=== PATIENT | female | born 1960 | race Caucasian/White ===

== ENCOUNTER 2023-08-21 15:01 | Outpatient (CLI) | payer MEDICARE, SELFPAY ==
--- OUTSIDE RECORDS SUMMARY | 2023-08-21 15:03 | XMS_ITS | Continuity of Care Document ---
Author Name Unknown Organization [facility] Address [address] [place] [address] Care Team Providers Care Utility Arborist Name Role Phone Ingrid Spence Primary Care Physician Encounter [facility]_[place] Date(s): 01/15/23 - 01/15/23 [facility] [address] [place] [address] Discharge Disposition: Home or Self Care Attending Physician: Ingrid Spence ND Admitting Physician: Ingrid Spence ND Referring Physician: Ingrid Spence ND Assessment and Plan Diagnostic Tests Pending * Vitamin D, 25-OH Total [facility] 01/15/23 Results Laboratory List Name Date .Morphology ([facility]) 01/15/23 Automated Diff 01/15/23 CBC w/ Diff 01/15/23 Free T4 01/15/23 T3, Free [facility] 01/15/23 Thyroid Stimulating Hormone 01/15/23 Most recent to oldest [Reference Range]: 1 WBC [5.0-10.0 x10^3/mcL] 2.5 x10^3/mcL *LOW* (01/15/23 1:00 PM) RBC [4.1-5.3 x10^6/mcL] 3.1 x10^6/mcL *LOW* (01/15/23 1:00 PM) Neutro Auto [40.0-75.0 %] 53.7 % (01/15/23 1:00 PM) Lymph Auto [20.0-50.0 %] 25.7 % (01/15/23 1:00 PM) Oliver Auto [2.0-15.0 %] 14.2 % (01/15/23 1:00 PM) Basophil Auto [0.0-1.0 %] 0.8 % (01/15/23 1:00 PM) MCV [80.0-96.0] 92.9 (01/15/23 1:00 PM) RBC Morph Abnormal (01/15/23 1:00 PM) T4 Free [0.76-1.46 ng/dL] 1.60 ng/dL *HI* (01/15/23 1:00 PM) MCHC [31.0-35.0 g/dL] 30.9 g/dL *LOW* (01/15/23 1:00 PM) Hct [37.0-47.0 %] 28.8 % *LOW* (01/15/23 1:00 PM) MCH [26.0-32.0 pg] 28.7 pg (01/15/23 1:00 PM) Neutro Absolute 1.4 x10^3/mcL *NA* (01/15/23 1:00 PM) Hgb [12.0-16.0 g/dL] 8.9 g/dL *LOW* (01/15/23 1:00 PM) Teardrop Cells Rare (01/15/23 1:00 PM) Polychrom Rare (01/15/23 1:00 PM) Platelets [130-450 x10^3/mcL] 197 x10^3/ mcL (01/15/23 1:00 PM) TSH [0.358-3.740 mcIntlUnit/mL] 0.515 mc IntlUnit/mL (01/15/23 1:00 PM) RDW-CV [11.7-17.0 %] 19.2 % *HI* (01/15/23 1:00 PM) Ovalocytes Rare (01/15/23 1:00 PM) Imm Gran Auto [0.0-0.9 %] 4.0 % *HI* (01/15/23 1:00 PM) NRBC Auto 2.8 % *NA* (01/15/23 1:00 PM) Anisocyte Rare (01/15/23 1:00 PM) Plt Estimation [Adequate] Adequate (01/15/23 1:00 PM) T3, Free [facility] [2.8-5.3 pg/mL] 4.0 pg/mL 1 *NA* (01/15/23 1:00 PM) Eos, Auto [1.0-6.0 %] 1.6 % (01/15/23 1:00 PM) 1Result Comment: Test performed [place] [address] Patient Care team information Care Team Personnel Name: Ingrid Spence ND Position: No Access Member Role: Primary Care Physician Address: Address: [address] [place] [address] [place] [address]- Care Team Related Persons Name: KRISTINA PERDUE
--- OUTSIDE RECORDS SUMMARY | 2023-08-21 15:03 | XMS_ITS | Continuity of Care Document ---
Author Name Unknown Organization [facility] Address [address] [place] [address] Encounter [facility]_[place] Date(s): 12/01/22 - 12/01/22 [facility] [address] [place] [address] Discharge Disposition: Home or Self Care Attending Physician: Violet Sánchez NP Admitting Physician: Violet Sánchez NP Referring Physician: Violet Sánchez [employer] Assessment and Plan Diagnostic Tests Pending * Urine Culture 12/01/22
--- OUTSIDE RECORDS SUMMARY | 2023-08-21 15:03 | XMS_ITS | Continuity of Care Document ---
Author Name Unknown Organization [facility] Address [address] [place] [address] Care Team Providers Care Regional Driver Name Role Phone Ingrid Spence Primary Care Physician Encounter [facility] Date(s): 06/20/23 - 06/20/[address] [id number] Discharge Disposition: Home or Self Care Attending Physician: Alex Valadez MD Admitting Physician: Alex Valadez MD Allergies, Adverse Reactions, Alerts No Known Medication Allergies Functional Status 06/20/23 Other exposure to Infectious Disease Non e Medications Enhertu 0 Refill(s) Start Date: 06/20/23 Status: Ordered gabapentin 0 Refill(s) Start Date: 06/20/23 Status: Ordered levothyroxine 0 Refill(s) Start Date: 06/20/23 Status: Ordered Results Laboratory List Name Date CBC w/ Diff 06/20/23 Comprehensive Metabolic Panel (CMP) Magnesium Level 06/20/23 .Manual Differential ([facility]) 06/20/23 Folate Level 06/20/23 Reticulocyte Count Automated 06/20/23 Vitamin B12 Level 06/20/23 Glucose POCT 06/20/23 Most recent to oldest [Reference Range]: 1 WBC [5.0-10.0 x10^3/mcL] 18.8 x10^3/mcL *HI* (06/20/23 4:27 PM) RBC [4.1-5.3 x10^6/mcL] 2.2 x10^6/mcL *LOW* (06/20/23 4:27 PM) Segs Man [40-75 %] 86 % *HI* (06/20/23 4:27 PM) Lymph Man [20-50 %] 7 % *LOW* (06/20/23 4:27 PM) [place] Man [2-15 %] 5 % (06/20/23 4:27 PM) Eos Man [1-6 %] 0 % *LOW* (06/20/23 4:27 PM) BUN [7-18 mg/dL] 21 mg/dL *HI* (06/20/23 4:27 PM) Glucose POC [74-106 mg/dL] 76 mg/dL (06/20/23 3:06 PM) Glucose Level [74-106 mg/dL] 91 mg/dL (06/20/23 4:27 PM) Potassium Level [3.5-5.1 mmol/L] 3.3 mmo l/L *LOW* (06/20/23 4:27 PM) MCV [80.0-96.0 fL] 112.8 fL *HI* (06/20/23 4:27 PM) RBC Morph Abnormal (06/20/23 4:27 PM) AST [15-37 unit/L] 132 unit/L *HI* (06/20/23 4:27 PM) ALT [14-59 unit/L] 154 unit/L *HI* (06/20/23 4:27 PM) MCHC [31.0-35.0 g/dL] 30.4 g/dL *LOW* (06/20/23 4:27 PM) Sodium Level [136-145 mmol/L] 136 mmol/L (06/20/23 4:27 PM) Folate Level [8.6-58.9 ng/mL] 12.7 ng/mL (06/20/23 4:27 PM) Hct [37.0-47.0 %] 24.7 % *LOW* (06/20/23 4:27 PM) Calcium Level [8.5-10.1 mg/dL] 7.9 mg/dL *LOW* (06/20/23 4:27 PM) Albumin Level [3.4-5.0 g/dL] 2.9 g/dL *LOW* (06/20/23 4:27 PM) Protein Total [6.4-8.2 g/dL] 5.6 g/dL *LOW* (06/20/23 4:27 PM) MCH [26.0-32.0 pg] 34.2 pg *HI* (06/20/23 4:27 PM) Magnesium Level [1.8-2.4 mg/dL] 2.2 mg/d L (06/20/23 4:27 PM) Bilirubin Total [0.2-1.0 mg/dL] 1.2 mg/d L *HI* (06/20/23 4:27 PM) Hgb [12.0-16.0 g/dL] 7.5 g/dL *LOW* (06/20/23 4:27 PM) B12 Level [193-986 pg/mL] >2000 pg/mL *HI* (06/20/23 4:27 PM) Alk Phos [46-146 unit/L] 691 unit/L *HI* (06/20/23 4:27 PM) Band Man [0-5 %] 2 % (06/20/23 4:27 PM) Teardrop Cells Small (06/20/23 4:27 PM) Dohle Bodies Small (06/20/23 4:27 PM) Platelets [130-450 x10^3/mcL] 114 x10^3/ mcL *LOW* (06/20/23 4:27 PM) CO2 [21-32 mmol/L] 26 mmol/L (06/20/23 4:27 PM) Reticulocyte % [0.5-2.4 %] 2.4 % (06/20/23 4:27 PM) Macrocyte Large (06/20/23 4:27 PM) eGFR Non-AA [>=60] 64 (06/20/23 4:27 PM) eGFR AA [>=60] 64 (06/20/23 4:27 PM) Chloride Level [98-107 mmol/L] 104 mmol/ L (06/20/23 4:27 PM) RDW-CV [11.5-14.5 %] 19.0 % *HI* (06/20/23 4:27 PM) Ovalocytes Small (06/20/23 4:27 PM) Slide Review Man Diff (06/20/23 4:27 PM) Abs Neut Man 16.5 x10^3/mcL *NA* (06/20/23 4:27 PM) Anisocyte Moderate (06/20/23 4:27 PM) Creatinine Level [0.55-1.02 mg/dL] 1.00 mg/dL (06/20/23 4:27 PM) Baso Man [0-1 %] 0 % (06/20/23 4:27 PM) Vital Signs Most recent to oldest [Reference Range]: 1 Temperature Temporal Artery [36-38 Deg C ] 36.8 Deg C (06/20/23 3:01 PM) Peripheral Pulse Rate [60-100 bpm] 108 b pm *HI* (06/20/23 3:01 PM) Respiratory Rate [12-24 br/min] 18 br/mi n (06/20/23 3:01 PM) Blood Pressure [90-140/60-90 mmHg] 121/6 6mmHg (06/20/23 3:01 PM) Weight Dosing 52.16 kg (06/20/23 3:06 PM) Weight Estimated 52.16 kg (06/20/23 3:01 PM) Height/Length Dosing 163.000 cm (06/20/23 3:06 PM) Height/Length Estimated 163.000 cm (06/20/23 3:01 PM) Social History Social History Type Response Tobacco Never tobacco user T obacco Use:. Sex Hospital Discharge Instructions Patient Education 06/20/2023 16:27:49 Potassium Content of Foods Potassium Content of Foods Potassium is a mineral found in many foods and drinks. It can affect how the heart works, affect blood pressure, and keep fluids and electrolytes balanced in the body. It is important not to have toomuch potassium (hyperkalemia) or too little potassium (hypokalemia) in the body, especially in the blood. Potassium is naturally found in many different types of whole foods, such as fruits, vegetables, meat, and dairy products. Processed foods tend to be lower in potassium. The amount of potassium you need each day depends on your age and any medical conditions you may have. General recommendations are: ??? Females aged 19 and older: 2,600 mg per day. ??? Males aged 19 and older: 3,400 mg per day. Talk with your health care provider or dietitian about how much potassium you need. What foods are high in potassium? Below are examples of foods that have greater than 200 mg of potassium per serving. Fruits ??? [place] ??? 1 medium (130 g) has 230 mg of potassium. ??? Banana ??? 1 medium (120 g) has 420 mg of potassium. ??? Cantaloupe, chunks ??? 1 cup (160 g) has 430 mg of potassium. Vegetables ??? Potato, baked, without skin ??? 1 medium (170 g) has 600 mg of potassium. ??? Broccoli, chopped, cooked ? cup (77.5 g) has 230 mg of potassium. ??? Tomato, chopped or sliced ??? 1 cup (152 g) has 400 mg of potassium. Grains ??? Cereal, bran with raisins ??? 1 cup (59 g) has 360 mg of potassium. ??? Granola with almonds ? cup (82 g) has 220 mg of potassium. Meats and other proteins ??? Ground beef [place] ??? 4 ounces (113 g) has 240 mg of potassium. ??? Kidney beans, boiled ? cup (130 g) has 350 mg of potassium. ??? Almonds ??? 1 ounce (approximately 22 nuts or 28 g) has 200 mg of potassium. Dairy ??? Cow's milk, 1% ??? 1 cup (237 mL) has 360 mg of potassium. ??? Plain vanilla low-fat yogurt ? cup (184 g) has 220 mg of potassium. The items listed above may not be a complete list of foods high in potassium. Actual amounts of potassium may be different depending on ripeness, shelf life, and food preparation. Contact a dietitianfor more information. What foods are low in potassium? Below are examples of foods that have less than 200 mg of potassium per serving. Fruits ??? Blueberries ??? 1 cup (145 g) has 110 mg of potassium. ??? Apple ??? 1 medium (140 g) has 145 mg of potassium. ??? Grapes ??? 1 cup (160 g) has 175 mg of potassium. Vegetables ??? Cabbage, raw ??? 1 cup (70 g) has 120 mg of potassium. ??? Cauliflower, chopped, cooked ??? 1 cup (180 g) has 90 mg of potassium. ??? Alexx lettuce, chopped ??? 1 cup (56 g) has 120 mg of potassium. Grains ??? Bagel, plain ??? one 4-inch (10 cm) has 100 mg of potassium. ??? Whole wheat bread ??? 1 slice (26 g) has 70 mg of potassium. ??? White rice, cooked ??? 1 cup (163 g) has 50 mg of potassium. Meats and other proteins ??? Tuna, light, canned in water ??? 3 ounces (85 g) has 150 mg of potassium. ??? Egg, fried ??? 1 large (50 g) has 60 mg of potassium. ??? Peanuts ???1 ounce (35 nuts or 28 g) has 180 mg of potassium. ??? Tofu ? cup (252 g) has 150 mg of potassium. Dairy ??? Cheese (cheddar, glen, mozzarella, or provolone) ??? 1 ounce (28 g) has 30 to 40 mg of potassium. The items listed above may not be a complete list of foods that are low in potassium. Actual amounts of potassium may be different depending on ripeness, shelf life, and food preparation. Contact a dietitian for more information. Summary ??? Potassium is a mineral found in many foods and drinks. It affects how the heart works, affects blood pressure, and keeps fluids and electrolytes balanced in the body. ??? The amount of potassium you need each day depends on your age and any existing medical conditions you may have. ??? Your health care provider or dietitian may recommend an amount of potassium that you should have each day. This information is not intended to replace advice given to you by your health care provider. Make sure you discuss any questions you have with your health care provider. Document Revised: 07/01/2022 Document Reviewed: 06/12/2022 Elsevier Patient Education ?? 2022 [employer] Physician Emergency department Note * Hernan Mccracken MD: PERFORM Event Display: ED Note Physician Authored Date: [id number] QUAN PERDEU :1960 Age:62 years Sex:Female Visit Date:06/20/2023 Primary Care Physician: Ingrid Spence ND Basic Information Time Seen: Hernan Mccracken MD / 06/20/2023 16:00 Chief Complaint Pt c/o left hand numbness, unable to hold vacuum. Pt has lymphedema in left arm, states it felt tight. Pt called [facility] oncologist and was told she was anemic from blood draw Thursday. History Of Present Illness: Presenting concern is left hand weakness.?? Context is patient with metastatic breast cancer??on??amedication named enhertu.?? For Review of Systems: Review of systems negative for fever, chest pain, shortness of breath, GI symptoms, symptoms, other neurologic symptoms. Physical Exam Vitals & Measurements T:??36.8?C ??(Temporal Artery)?? HR:??108??(Peripheral)?? RR:??18?? BP:??121/66?? SpO2:??100%?? HT:??163.000??cm?? WT:??52.16??kg??(Estimated)?? O2 Therapy:??Room air?? Apparent normal strength and sensation??in left hand.?? Mental status normal.?? Respirations normal.?? Strength upper extremities normal. ??Mild reduction in??resistance to??dorsiflexion??of??left wrist.?? 3-5 Medical Decision Making: Problem complexity is low. ??Data complexity is low. ??Management risk of??low. ??[facility] coding 89876. 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 Patient Education Potassium Content of Foods Medication Reconciliation Unchanged fam-trastuzumab deruxtecan (Enhertu) ?? gabapentin ?? levothyroxine Problem List/Past Medical History Ongoing No qualifying data Historical No qualifying data Allergies No Known Medication Allergies Social History Electronic Cigarette/Vaping Electronic Cigarette Use: Never. Tobacco Never tobacco user Tobacco Use:. Lab Results CBC and Differential?? LATEST RESULTS?? HISTORICAL RESULTS?? WBC?? 06/20/23 16:27?? 18.8 ??High?? 02/05/23?? 2.3 ??Low?? RBC?? 06/20/23 16:27?? 2.2 ??Low?? 02/05/23?? 2.8 ??Low?? Hgb?? 06/20/23 16:27?? 7.5 ??Low?? 02/05/23?? 8.0 ??Low?? Hct?? 06/20/23 16:27?? 24.7 ??Low?? 02/05/23?? 26.6 ??Low?? MCV?? 06/20/23 16:27?? 112.8 ??High?? 02/05/23?? 94.7?? MCH?? 06/20/23 16:27?? 34.2 ??High?? 02/05/23?? 28.5?? MCHC?? 06/20/23 16:27?? 30.4 ??Low?? 02/05/23?? 30.1 ??Low?? RDW-CV?? 06/20/23 16:27?? 19.0 ??High?? 02/05/23?? 21.3 ??High?? Platelets?? 06/20/23 16:27?? 114 ??Low?? 02/05/23?? 173?? Segs Man?? 06/20/23 16:27?? 86 ??High?? 02/05/23?? 66?? Lymph Man?? 06/20/23 16:27?? 7 ??Low?? 02/05/23?? 22?? [place] Man?? 06/20/23 16:27?? 5?? 02/05/23?? 6?? Eos Man?? 06/20/23 16:27?? 0 ??Low?? 02/05/23?? 1?? Baso Man?? 06/20/23 16:27?? 0?? 02/05/23?? 1?? Band Man?? 06/20/23 16:27?? 2?? 02/05/23?? 1?? Abs Neut Man?? 06/20/23 16:27?? 16.5?? 02/05/23?? 1.5?? RBC Morph?? 06/20/23 16:27?? Abnormal?? 02/05/23?? Abnormal?? Anisocyte?? 06/20/23 16:27?? Moderate?? 02/05/23?? Moderate?? Dohle Bodies?? 06/20/23 16:27?? Small? Macrocyte?? 06/20/23 16:27?? Large? Ovalocytes?? 06/20/23 16:27?? Small?? 01/15/23?? Rare?? Teardrop Cells?? 06/20/23 16:27?? Small?? 01/15/23?? Rare?? Slide Review?? 06/20/23 16:27?? Man Diff?? 02/05/23?? Man Diff? Routine Chemistry?? LATEST RESULTS?? HISTORICAL RESULTS?? Sodium Level?? 06/20/23 16:27?? 136?? 02/05/23?? 138?? Potassium Level?? 06/20/23 16:27?? 3.3 ??Low?? 02/05/23?? 4.2?? Chloride Level?? 06/20/23 16:27?? 104?? 02/05/23?? 102?? CO2?? 06/20/23 16:27?? 26?? 02/05/23?? 27?? Alk Phos?? 06/20/23 16:27?? 691 ??High?? 02/05/23?? 948 ??High?? AST?? 06/20/23 16:27?? 132 ??High?? 02/05/23?? 129 ??High?? ALT?? 06/20/23 16:27?? 154 ??High?? 02/05/23?? 57?? BUN?? 06/20/23 16:27?? 21 ??High?? 02/05/23?? 22 ??High?? Glucose Level?? 06/20/23 16:27?? 91?? 02/05/23?? 141 ??High?? Creatinine Level?? 06/20/23 16:27?? 1.00?? 02/05/23?? 1.17 ??High?? eGFR AA?? 06/20/23 16:27?? 64?? 02/05/23?? 53 ??Low?? eGFR Non-AA?? 06/20/23 16:27?? 64?? 02/05/23?? 53 ??Low?? Calcium Level?? 06/20/23 16:27?? 7.9 ??Low?? 02/05/23?? 9.2?? Protein Total?? 06/20/23 16:27?? 5.6 ??Low?? 02/05/23?? 7.5?? Albumin Level?? 06/20/23 16:27?? 2.9 ??Low?? 02/05/23?? 3.3 ??Low?? Bilirubin Total?? 06/20/23 16:27?? 1.2 ??High?? 02/05/23?? 1.3 ??High?? Magnesium Level?? 06/20/23 16:27?? 2.2? Glucose POC?? 06/20/23 15:06?? 76? Electronically Signed on 06/20/23 05:28 PM Hernan Mccracken MD Emergency department Discharge instructions * Hernan Mccracken MD: PERFORM Event Display: ED Discharge Information Authored Date: [id number] QUAN PEDRUE :1960 Age:62 years Sex:Female Visit Date:06/20/2023 Primary Care Physician: Stadtauer, Ingrid Bre ND Discharge Instructions We would like to thank you for allowing us to assist you with your healthcare needs. The following includes patient education materials and information regarding your injury/illness. Discharge Vitals Temperature??(Temporal Artery) 98.2 ??F (36.8 ??C) Heart Rate??(Peripheral) 108 Respiratory Rate?? 18 Blood Pressure?? 121/66?? Height?? 64.17 in (163.000 cm) Weight??(Estimated) 115.01 lb (52.16 kg) Allergies No Known Medication Allergies What to Do Next Instructions from Your Care Team Monitor the symptoms in your left hand.?? Your potassium is slightly low which is a side effect of your chemotherapy, need a banana every day to help??augment your potassium intake.?? We will also give you a list of??the potassium content of various foods.?? The size of your red blood cells is large suggesting a??vitamin deficiency. ??I will order test to measure??the important??vitamins??affecting??red blood cell size.?? Discussed findings with your primary care provider. ?? Hernan Mccracken MD You were treated today on an emergency basis; it may be olson to contact your primary care provider to notify them of your visit today. You may have been referred to your regular doctor or a specialist, please follow up as instructed. If your condition worsens or you can't get in to see the doctor, contact the Emergency Department. Medications What When Instructions Next Dose Unchanged fam-trastuzumab deruxtecan (Enhertu) Unchanged gabapentin Unchanged levothyroxine Education Materials Potassium Content of Foods Potassium is a mineral found in many foods and drinks. It can affect how the heart works, affect blood pressure, and keep fluids and electrolytes balanced in the body. It is important not to have toomuch potassium (hyperkalemia) or too little potassium (hypokalemia) in the body, especially in the blood. Potassium is naturally found in many different types of whole foods, such as fruits, vegetables, meat, and dairy products. Processed foods tend to be lower in potassium. The amount of potassium you need each day depends on your age and any medical conditions you may have. General recommendations are: ? Females aged 19 and older: 2,600 mg per day. ? Males aged 19 and older: 3,400 mg per day. Talk with your health care provider or dietitian about how much potassium you need. What foods are high in potassium? Below are examples of foods that have greater than 200 mg of potassium per serving. Fruits ? [place] ??? 1 medium (130 g) has 230 mg of potassium. ? Banana ??? 1 medium (120 g) has 420 mg of potassium. ? Cantaloupe, chunks ??? 1 cup (160 g) has 430 mg of potassium. Vegetables ? Potato, baked, without skin ??? 1 medium (170 g) has 600 mg of potassium. ? Broccoli, chopped, cooked ? cup (77.5 g) has 230 mg of potassium. ? Tomato, chopped or sliced ??? 1 cup (152 g) has 400 mg of potassium. Grains ? Cereal, bran with raisins ??? 1 cup (59 g) has 360 mg of potassium. ? Granola with almonds ? cup (82 g) has 220 mg of potassium. Meats and other proteins ? Ground beef [place] ??? 4 ounces (113 g) has 240 mg of potassium. ? Kidney beans, boiled ? cup (130 g) has 350 mg of potassium. ? Almonds ??? 1 ounce (approximately 22 nuts or 28 g) has 200 mg of potassium. Dairy ? Cow's milk, 1% ??? 1 cup (237 mL) has 360 mg of potassium. ? Plain vanilla low-fat yogurt ? cup (184 g) has 220 mg of potassium. The items listed above may not be a complete list of foods high in potassium. Actual amounts of potassium may be different depending on ripeness, shelf life, and food preparation. Contact a dietitianfor more information. What foods are low in potassium? Below are examples of foods that have less than 200 mg of potassium per serving. Fruits ? Blueberries ??? 1 cup (145 g) has 110 mg of potassium. ? Apple ??? 1 medium (140 g) has 145 mg of potassium. ? Grapes ??? 1 cup (160 g) has 175 mg of potassium. Vegetables ? Cabbage, raw ??? 1 cup (70 g) has 120 mg of potassium. ? Cauliflower, chopped, cooked ??? 1 cup (180 g) has 90 mg of potassium. ? Alexx lettuce, chopped ??? 1 cup (56 g) has 120 mg of potassium. Grains ? Bagel, plain ??? one 4-inch (10 cm) has 100 mg of potassium. ? Whole wheat bread ??? 1 slice (26 g) has 70 mg of potassium. ? White rice, cooked ??? 1 cup (163 g) has 50 mg of potassium. Meats and other proteins ? Tuna, light, canned in water ??? 3 ounces (85 g) has 150 mg of potassium. ? Egg, fried ??? 1 large (50 g) has 60 mg of potassium. ? Peanuts ???1 ounce (35 nuts or 28 g) has 180 mg of potassium. ? Tofu ? cup (252 g) has 150 mg of potassium. Dairy ? Cheese (cheddar, glen, mozzarella, or provolone) ??? 1 ounce (28 g) has 30 to 40 mg of potassium. The items listed above may not be a complete list of foods that are low in potassium. Actual amounts of potassium may be different depending on ripeness, shelf life, and food preparation. Contact a dietitian for more information. Summary ? Potassium is a mineral found in many foods and drinks. It affects how the heart works, affects blood pressure, and keeps fluids and electrolytes balanced in the body. ? The amount of potassium you need each day depends on your age and any existing medical conditions you may have. ? Your health care provider or dietitian may recommend an amount of potassium that you should have each day. This information is not intended to replace advice given to you by your health care provider. Make sure you discuss any questions you have with your health care provider. Document Revised: 07/01/2022 Document Reviewed: 06/12/2022 Elsevier Patient Education ?? 2022 [employer] Tests Performed Lab Test Name Test Result Date/Time WBC 18.8 x10^3/mcL 06/20/2023 16:27 EDT RBC 2.2 x10^6/mcL 06/20/2023 16:27 EDT Hgb 7.5 g/dL 06/20/2023 16:27 EDT Hct 24.7 % 06/20/2023 16:27 EDT MCV 112.8 fL 06/20/2023 16:27 EDT MCH 34.2 pg 06/20/2023 16:27 EDT MCHC 30.4 g/dL 06/20/2023 16:27 EDT RDW-CV 19.0 % 06/20/2023 16:27 EDT Platelets 114 x10^3/mcL 06/20/2023 16:27 EDT Segs Man 86 % 06/20/2023 16:27 EDT Lymph Man 7 % 06/20/2023 16:27 EDT [place] Man 5 % 06/20/2023 16:27 EDT Eos Man 0 % 06/20/2023 16:27 EDT Baso Man 0 % 06/20/2023 16:27 EDT Band Man 2 % 06/20/2023 16:27 EDT Abs Neut Man 16.5 x10^3/mcL 06/20/2023 16:27 EDT RBC Morph Abnormal 06/20/2023 16:27 EDT Anisocyte Moderate 06/20/2023 16:27 EDT Dohle Bodies Small 06/20/2023 16:27 EDT Macrocyte Large 06/20/2023 16:27 EDT Ovalocytes Small 06/20/2023 16:27 EDT Teardrop Cells Small 06/20/2023 16:27 EDT Slide Review Man Diff 06/20/2023 16:27 EDT Sodium Level 136 mmol/L 06/20/2023 16:27 EDT Potassium Level 3.3 mmol/L 06/20/2023 16:27 EDT Chloride Level 104 mmol/L 06/20/2023 16:27 EDT CO2 26 mmol/L 06/20/2023 16:27 EDT Alk Phos 691 unit/L 06/20/2023 16:27 EDT AST 132 unit/L 06/20/2023 16:27 EDT ALT 154 unit/L 06/20/2023 16:27 EDT BUN 21 mg/dL 06/20/2023 16:27 EDT Glucose Level 91 mg/dL 06/20/2023 16:27 EDT Creatinine Level 1.00 mg/dL 06/20/2023 16:27 EDT eGFR AA 64 06/20/2023 16:27 EDT eGFR Non-AA 64 06/20/2023 16:27 EDT Calcium Level 7.9 mg/dL 06/20/2023 16:27 EDT Protein Total 5.6 g/dL 06/20/2023 16:27 EDT Albumin Level 2.9 g/dL 06/20/2023 16:27 EDT Bilirubin Total 1.2 mg/dL 06/20/2023 16:27 EDT Magnesium Level 2.2 mg/dL 06/20/2023 16:27 EDT Glucose POC 76 mg/dL 06/20/2023 15:06 EDT Patient/Union Carpenter Signature Patient Name:QUAN PERDUE I have received this information and my questions have been answered. Patient/Union Carpenter Name: Patient/Union Carpenter Signature: Relationship to Patient: Witness Name/Signature: Date: Electronically Signed on: 06/20/2023 17:28 EDTSigned by:[facility] Emergency department Note * Cristela Gutiérrez: PERFORM Event Display: ED Notes Authored Date: [id number] Patient Care team information Care Team Personnel Name: Ingrid Spence ND Position: No Access Member Role: Informed Provider Address: Address: [address] [place] [id number] Name: Genoveva Gaytan Position: Nurse Member Role: ED Nurse Name: Hernan Mccracken MD Position: Physician Member Role: ED Physician Address: Address: [address] [place] [address] Care Team Related Persons Name: KRISTINA PERDUE
--- OUTSIDE RECORDS SUMMARY | 2023-08-21 15:03 | XMS_ITS | Continuity of Care Document ---
Author Name Unknown Organization [facility] Address [address] [place] [address] Care Team Providers Care Community Health Director Name Role Phone Ingrid Spence Primary Care Physician Encounter [facility] Date(s): 02/05/23 - 02/05/23 [facility] [address] [place] [address] Discharge Disposition: Home or Self Care Attending Physician: Alida Wilson MD Admitting Physician: Alida Wilson MD Referring Physician: Alida Wilson MD Assessment and Plan Diagnostic Tests Pending * CA 15-3, [place] 02/05/23 Results Laboratory List Name Date .Manual Differential ([facility]) 02/05/23 CBC w/ Diff 02/05/23 Comprehensive Metabolic Panel 02/05/23 Most recent to oldest [Reference Range]: 1 WBC [5.0-10.0 x10^3/mcL] 2.3 x10^3/mcL *LOW* (02/05/23 1:45 PM) RBC [4.1-5.3 x10^6/mcL] 2.8 x10^6/mcL *LOW* (02/05/23 1:45 PM) Segs Man [40-75 %] 66 % (02/05/23 1:45 PM) Lymph Man [20-50 %] 22 % (02/05/23 1:45 PM) [place] Man 6 % *NA* (02/05/23 1:45 PM) Eos Man 1 % *NA* (02/05/23 1:45 PM) BUN [7-18 mg/dL] 22 mg/dL *HI* (02/05/23 1:45 PM) Glucose Level [74-106 mg/dL] 141 mg/dL *HI* (02/05/23 1:45 PM) Potassium Level [3.5-5.1 mmol/L] 4.2 mmo l/L (02/05/23 1:45 PM) MCV [80.0-96.0] 94.7 (02/05/23 1:45 PM) RBC Morph Abnormal (02/05/23 1:45 PM) AST [15-37 unit/L] 129 unit/L *HI* (02/05/23 1:45 PM) ALT [14-59 unit/L] 57 unit/L (02/05/23 1:45 PM) MCHC [31.0-35.0 g/dL] 30.1 g/dL *LOW* (02/05/23 1:45 PM) Sodium Level [136-145 mmol/L] 138 mmol/L (02/05/23 1:45 PM) Hct [37.0-47.0 %] 26.6 % *LOW* (02/05/23 1:45 PM) Calcium Level [8.5-10.1 mg/dL] 9.2 mg/dL (02/05/23 1:45 PM) Albumin Level [3.4-5.0 g/dL] 3.3 g/dL *LOW* (02/05/23 1:45 PM) Protein Total [6.4-8.2 g/dL] 7.5 g/dL (02/05/23 1:45 PM) MCH [26.0-32.0 pg] 28.5 pg (02/05/23 1:45 PM) Bilirubin Total [0.2-1.0 mg/dL] 1.3 mg/d L *HI* (02/05/23 1:45 PM) Hgb [12.0-16.0 g/dL] 8.0 g/dL *LOW* (02/05/23 1:45 PM) NRBC Man 2 % *NA* (02/05/23 1:45 PM) Alk Phos [46-146 unit/L] 948 unit/L *HI* (02/05/23 1:45 PM) Band Man [0-5 %] 1 % (02/05/23 1:45 PM) Polychrom Rare (02/05/23 1:45 PM) Platelets [130-450 x10^3/mcL] 173 x10^3/ mcL (02/05/23 1:45 PM) CO2 [21-32 mmol/L] 27 mmol/L (02/05/23 1:45 PM) eGFR Non-AA [>=60] 53 *LOW* (02/05/23 1:45 PM) eGFR AA [>=60] 53 *LOW* (02/05/23 1:45 PM) Chloride Level [98-107 mmol/L] 102 mmol/ L (02/05/23 1:45 PM) RDW-CV [11.7-17.0 %] 21.3 % *HI* (02/05/23 1:45 PM) Abs Neut Man 1.5 x10^3/mcL *NA* (02/05/23 1:45 PM) Immature Cells 3 *NA* (02/05/23 1:45 PM) Anisocyte Moderate (02/05/23 1:45 PM) Creatinine Level [0.55-1.02 mg/dL] 1.17 mg/dL *HI* (02/05/23 1:45 PM) Baso Man [0-1 %] 1 % (02/05/23 1:45 PM) Patient Care team information Care Team Personnel Name: Ingrid Spence ND Position: No Access Member Role: Informed Provider Address: Address: [address] [place], [place] [address] Care Team Related Persons Name: KRISTINA PERDUE
[2023-08-21 15:39] LABS: FREE T4 1.22 ng/dL (0.76-1.46)
== END 2023-08-21 15:02 | disposition home or self-care (01) ==
LOC: LBO 15:02
PROVIDERS: PCP Family Medicine; Visit Provider Family Medicine
DX: E03.9 Hypothyroidism, unspecified (principal)
CPT/HCPCS: 36415; 84439; 84443; 84481

== ENCOUNTER 2023-08-21 21:38 | Outpatient (REF) | payer MEDICARE, SELFPAY ==
[2023-08-21 21:18] LABS: Bilirubin Negative (Negative); Blood Negative (Negative); Clarity Clear (Clear); Glucose Negative (Negative); Ketones Negative (Negative); Leukocyte Esterase Small (Negative); Nitrite Negative (Negative); Urobilinogen 0.2 mg/dL (Up to 0.2)
[2023-08-21 21:37] LABS: Bacteria Negative HPF (Negative); C & S Indicated? Yes; Crystals Negative HPF (Negative); Epithelial Cells Rare HPF (Negative); Mucus Trace (Negative); Other Cells Rare Transitional (Negative); RBC 0-2 HPF (0-2)
== END 2023-08-21 21:39 | disposition home or self-care (01) ==
LOC: LBN 21:38
PROVIDERS: PCP Family Medicine; Visit Provider Nurse Practitioner Family
DX: N39.0 Urinary tract infection, site not specified (principal)
CPT/HCPCS: 81003; 81015; 87086

== ENCOUNTER 2024-05-25 01:45 | Outpatient (CLI) | payer MEDICARE, SELFPAY ==
--- NOTE | 2024-05-25 | DI.NM_ITS ---
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 TECHNIQUE: Injected Dose: 25 mCi Tc-99m MDP Delayed Images: 2-3 hours. COMPARISON: No exams were available for comparison FINDINGS: The majority of the radiotracer uptake is seen within the bones with little activity seen in the soft tissues and kidneys. The findings are most suggestive of a super scan secondary to diffuse osseous metastatic disease. There is activity seen in the urinary bladder but the kidneys are very poorly vi sualized. IMPRESSION: 1. Findings suggestive of diffuse osseous metastatic disease. DATA REPOSITORY:
--- NOTE | 2024-05-25 | DI.CT_ITS ---
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 No bronchiectasis. Pulmonary parenchyma: The multi nodular opacity in the posterior aspect of the left upper lobe appear s stable. The multifocal ground-glass opacities have shown slight improvement compared to the prior examination. No new infiltrates are seen. There is a persistent moderate left pleural effusion and subjacent infiltrate which likely reflects atelectasis in the left lower lobe. There has been slight interval decrease in size of the right pleural effusion. Mediastinum and Elayne: No dominant adenopathy or fluid collection. The esophagus is unremarkable. Pleura: No pneumothorax. Heart: The heart is not dilated. No coronary artery calcifications are seen. No pericardial effusion. Pulmonary arteries: No pulmonary emboli are identified. Aorta: The ascending thoracic aorta measures 3.7 x 3.9 cm. Atherosclerotic calcification is present. No evidence of dissection. Lymph nodes: Within normal limits. Tubes, Catheters, and Lines: There is a right-sided [id number] catheter in place. Soft tissues: Unremarkable. Bones:There is diffuse osseous sclerosis consistent with diffuse metastatic disease. ABDOMEN: Liver: There has been no change in appearance in size of the left liver. There are multiple hypodens ities scattered throughout the liver predominantly involving the left lobe. Parenchymal calcificatio ns are seen in the dome of the liver and the left lobe. Portal, Superior Mesenteric, and Splenic Veins: The left portal vein is not visualized. This is unch anged. The right portal vein superior mesenteric and splenic veins are patent. Upper abdominal and gastroesophageal varices are present. Gallbladder and Biliary Tract: The gallbladder is not visualized. There is no biliary ductal dilatat ion. Pancreas: Normal density, no abnormal calcifications or inflammatory process. Spleen: There is again seen an area of decreased attenuation in the anterior aspect of the spleen. Adrenals: No masses seen. Kidneys: Normal size, contour and axis. No radiodense stones or obstructive uropathy. No masses seen. Abdominal Aorta: Abdominal portion non-dilated. Atherosclerotic calcification is present. Bowel: No obstruction or bowel wall thickening. No evidence of appendicitis. Peritoneal Cavity: There is a large amount of abdominal and pelvic ascites. No free air. Lymph Nodes: Within normal limits. Bones: There is diffuse osseous metastatic disease with bony sclerosis. Soft Tissues: There is a small fluid containing umbilical hernia. PELVIS: Bladder: Symmetric distention, no gross wall thickening. Reproductive Organs: Unremarkable as visualized. Lymph Nodes: Within normal limits. Bones: There is diffuse sclerosis of the bones distant with osseous metastatic disease. IMPRESSION: 1. Stable multinodular opacity in the left upper lobe. 2. Slight improvement in the ground-glass opacities in the lungs since the prior examination. 3. Slight decrease in size of the right pleural effusion. Stable left pleural effusion and left subj acent atelectasis. 4. Stable appearance of the liver. 5. Interval increase in the abdominal site ease which is now large. 6. Diffuse sclerotic metastatic disease. RADIATION DOSE DELIVERED: Total DLP DATA REPOSITORY: All CT scans at this facility are submitted to the National Radiology Data Registry (NRDR) Dose Index Registry (DIR) with the [employer] (ACR). RADIATION OPTIMIZATION: All CT scans at this facility use at least one of these dose optimization te chniques: automated exposure control; mA and/or kV adjustment per patient size (includes targeted exa ms where dose is matched to clinical indication); or iterative reconstruction.
[2024-05-25] MEDS: Barium Sulfate 2% W/V-Berry Smoothie 450 ML BTL PO ×2 (07:24→07:26)
[2024-05-25] MEDS: Normal Saline - Diluent 50 ML VIAL IJ (09:39)
[2024-05-25] MEDS: Omnipaque 350 MG/ML 500 ML BTL-Imaging package 100 ML IJ (09:40)
== END 2024-05-25 02:05 ==
LOC: DI 01:45
PROVIDERS: PCP Family Medicine; Visit Provider Internal Medicine Medical Oncology
DX: C78.7 Secondary malignant neoplasm of liver and intrahepatic bile duct (principal); C79.51 Secondary malignant neoplasm of bone; C50.112 Malignant neoplasm of central portion of left female breast
CPT/HCPCS: 74177; 78306; 71260

== ENCOUNTER 2024-05-25 02:32 | Outpatient (RCR) | payer MEDICARE, SELFPAY ==
[2024-05-25] MEDS: Normal Saline Flush 10 ML SYR IVP (07:11)
== END 2024-06-11 23:59 | disposition home or self-care (01) ==
LOC: INF 02:32
PROVIDERS: PCP Family Medicine; Visit Provider Internal Medicine Medical Oncology
DX: Z45.2 Encounter for adjustment and management of vascular access device (principal)
CPT/HCPCS: 96523